=== PATIENT | male | born 1965 | race Caucasian/White ===

== ENCOUNTER → 2017-04-28 | Outpatient (CLI) | payer BC, OTHER ==
[2017-04-28 17:28] LABS: BASO % 0.6 %; BASO ABS # 0.04 K/uL (0-0.2); EOS % 1.5 %; EOS ABS # 0.09 K/uL (0-0.5); HEMOGLOBIN 16.6 g/dL (14.0-18.0); IG# 0.01 K/uL (0.00-0.02); LYMPH % 36.3 %; LYMPH ABS # 2.25 K/uL (1.2-3.4); MEAN CELL VOLUME 86.5 fL (80-100); MEAN CORPUSCULAR HEMOGLOBIN 29.9 pg (25-34); MEAN CORPUSCULAR HGB CONC 34.6 g/dl (32-36); MEAN PLATELET VOLUME 9.7 fL (7.4-10.4); MONO % 5.8 %; MONO ABS # 0.36 K/uL (0.11-0.59); NEUT % 55.6 %; NEUT ABS # 3.45 K/uL (1.4-6.5); PLATELET COUNT 210 K/uL (130-400); RED CELL DISTRIBUTION WIDTH CV 13.1 % (11.5-14.5); RED CELL DISTRIBUTION WIDTH SD 41.5 fL (36.4-46.3)
[2017-04-28 17:50] LABS: ALBUMIN 4.6 gm/dl (3.4-5.0); BLOOD UREA NITROGEN 22 mg/dl (7-18); CALCIUM 9.3 mg/dl (8.5-10.1); CARBON DIOXIDE 27 mmol/L (21-32); GLUCOSE,FASTING 100 mg/dl (70-99); POTASSIUM 3.7 mmol/L (3.5-5.1); SODIUM 136 mmol/L (136-145)
[2017-04-28 17:55] LABS: ALKALINE PHOSPHATASE 50 U/L (45-117); ALT/SGPT 48 U/L (12-78); AST/SGOT 38 U/L (15-37); LDL CHOLESTEROL (DIRECT) 98 mg/dl
[2017-04-29 04:39] LABS: HEMOGLOBIN A1C 5.8 % (4.5-5.6)
== END | disposition home or self-care (01) ==
LOC: C.LABPBG 10:52
PROVIDERS: ATTEND Internal Medicine Cardiovascular Disease
DX: Z12.5 Encounter for screening for malignant neoplasm of prostate (principal); E03.9 Hypothyroidism, unspecified; I10 Essential (primary) hypertension; E78.5 Hyperlipidemia, unspecified; Z79.899 Other long term (current) drug therapy; Z51.81 Encounter for therapeutic drug level monitoring; R73.03 Prediabetes; Z82.49 Family history of ischemic heart disease and other diseases of the circulatory system

== ENCOUNTER → 2017-12-22 | Outpatient (CLI) | payer OTHER ==
--- NOTE | 2017-12-22 08:09 | DIAGNOSTIC IMAGING REPORT ---
(LIVER) ABDOMEN LIMITED HISTORY: 52 years-old Male R94.5 Abnormal liver function [id number] COMPARISON: None available TECHNIQUE: Multiple real-time sonographic images of the abdominal right upper quadrant were obtained assessing grayscale appearance and color flow FINDINGS: Visualized pancreas appears mildly heterogeneous, nonspecific. Liver demonstrate mildly increased echogenicity. No focal hepatic mass lesion or intrahepatic biliary ductal dilation. There is a nonmobile echogenic non-shadowing 6 mm focus along the nondependent gallbladder wall which appears to demonstrate internal flow. No shadowing cholelithiasis, gall bladder wall thickening or pericholecystic fluid. Common bile duct is normal, 4 mm. Imaged right kidney is unremarkable without hydronephrosis. IMPRESSION: 1. Nonmobile echogenic non-shadowing 6 mm focus along the nondependent gallbladder wall suggests gallbladder polyp. No shadowing cholelithiasis or sonographic evidence of acute cholecystitis. 2. No biliary ductal dilation. 3. Mildly increased echogenicity of the liver, possibly reflects fatty infiltration. The above report was generated using voice recognition software. It may contain grammatical, syntax or spelling errors. Electronically signed by: Lauro Barth M.D. 12/22/2017 8:07 AM Dictated Date/Time: 12/22/2017 8:04 AM
== END | disposition home or self-care (01) ==
LOC: C.ULTR 06:48
PROVIDERS: ATTEND Internal Medicine
DX: R94.5 Abnormal results of liver function studies (principal)

== ENCOUNTER → 2017-12-22 | Outpatient (CLI) | payer OTHER ==
[2017-12-22 10:02] LABS: ALBUMIN 4.1 gm/dl (3.4-5.0); ALKALINE PHOSPHATASE 51 U/L (45-117); ALT/SGPT 44 U/L (12-78); AST/SGOT 32 U/L (15-37); BLOOD UREA NITROGEN 19 mg/dl (7-18); CALCIUM 8.7 mg/dl (8.5-10.1); CARBON DIOXIDE 28 mmol/L (21-32); CHOLESTEROL 186 mg/dl (0-200); CREATININE 0.85 mg/dl (0.60-1.40); GLUCOSE 104 mg/dl (70-99); LDL CHOLESTEROL CALCULATED 88 mg/dl; POTASSIUM 4.1 mmol/L (3.5-5.1); SODIUM 137 mmol/L (136-145); TOTAL PROTEIN 7.4 gm/dl (6.4-8.2)
[2017-12-22 10:41] LABS: HEP C IGG 13 YRS+OLDER_RFLX NEG (NEG)
[2017-12-23 15:21] LABS: ANA SCREEN TC 249X POSITIVE (NEGATIVE); HEPATITIS A IGM TC 51813E NON-REACTIVE (NON-REACTIVE)
[2017-12-27 14:40] LABS: ANA TITER > OR = 1:1280 TITER (<1:40)
== END | disposition home or self-care (01) ==
LOC: C.LAB 06:52
PROVIDERS: ATTEND Internal Medicine
DX: E03.9 Hypothyroidism, unspecified (principal); E78.5 Hyperlipidemia, unspecified; I10 Essential (primary) hypertension; R94.5 Abnormal results of liver function studies